=== PATIENT | male | born 1955 | race Caucasian/White ===

== ENCOUNTER 2018-02-22 18:37 | Emergency (ER) | payer OTHER ==
[~2018-02-22] VITALS: Ht 177.8 cm; Wt 95.3 kg
[2018-02-22 18:45] VITALS: BP 132/81
[2018-02-22] MEDS ORDERED: PROZAC10 MG ORAL (18:58)
[2018-02-22] MEDS ORDERED: XANAX0.25 MG ORAL (18:58)
[2018-02-22 19:07] LABS: BASOPHILS % (AUTO) 0.8 % (0.0-2.0); EOSINOPHILS % (AUTO) 1.3 % (0.0-3.0); HEMOGLOBIN 10.8 G/DL (14.2-18.0); LYMPHOCYTES % (AUTO) 18.8 % (20.0-45.0); MEAN CORPUSCULAR VOLUME 86 FL (80-99); MONOCYTES % (AUTO) 8.2 % (1.0-10.0); NEUTROPHILS % (AUTO) 70.9 % (45.0-75.0); PLATELET COUNT 233 K/UL (150-450); RED BLOOD COUNT 3.59 M/UL (4.70-6.10); RED CELL DISTRIBUTION WIDTH 10.1 % (11.6-14.8); WHITE BLOOD COUNT 14.9 K/UL (4.8-10.8)
[2018-02-22 19:15] LABS: ANION GAP 12 mmol/L (5-15); BLOOD UREA NITROGEN 27 mg/dL (7-18); CARBON DIOXIDE 21 MMOL/L (21-32); CHLORIDE 102 MMOL/L (98-107); CREATININE 0.9 MG/DL (0.55-1.30); POTASSIUM 3.6 MMOL/L (3.5-5.1); SODIUM 135 MMOL/L (136-145)
[2018-02-22 19:28] LABS: ALANINE AMINOTRANSFERASE 32 U/L (12-78); ALBUMIN 3.3 G/DL (3.4-5.0); ALKALINE PHOSPHATASE 72 U/L (46-116); ASPARTATE AMINO TRANSFERASE 24 U/L (15-37); BILIRUBIN,TOTAL 0.2 MG/DL (0.2-1.0); CKMB 1.8 NG/ML (0.0-3.6); CREATINE KINASE 103 U/L (26-308)
--- NOTE | 2018-02-22 19:43 | Emergency Room Report ---
History of Present Illness General Chief Complaint: Syncope Source: Patient, Medical Record Present Illness HPI 62-year-old male presents ED for evaluation. Patient had a syncopal event today. Occurred at work in the parking lot as she was going home. States he started to feel dizzy and before he realized he was on the ground. Per EMS there is a laceration near his right eye. Tetanus is up-to-date. Patient was orthostatic in the field. Given IV fluids. Patient states he did have a long stressful day at work today. States he did not drink a lot of water. Denies any pain. Denies any headache or dizziness. Denies chest pain or shortness of breath. No other aggravating relieving factors. Denies any other associated symptoms Allergies: Coded Allergies: No Known Allergies (Unverified , 02/22/18) Patient History Past Medical History: psych hx Past Surgical History: none Pertinent Family History: none Social History: Denies: smoking, alcohol use, drug use Immunizations: UTD Reviewed Nursing Documentation: PMH: Agreed; PSxH: Agreed Nursing Documentation-PMH Past Medical History: No History, Except For Hx Asthma: Yes History Of Psychiatric Problem: Yes - depression, anxiety Review of Systems All Other Systems: negative except mentioned in HPI Physical Exam Vital Signs Date Time Temp Pulse Resp B/P (MAP) Pulse Ox O2 Delivery O2 Flow Rate FiO2 02/22/18 18:41 97.7 96 14 136/84 98 Room Air Sp02 EP Interpretation: reviewed, normal General Appearance: no apparent distress, alert, GCS 15, non-toxic Head: normocephalic, other - 2cm vertical laceration lateral to R eyebrow, connecting with lateral canthus. Eyes: bilateral eye normal inspection, bilateral eye PERRL, bilateral eye EOMI ENT: hearing grossly normal, normal pharynx, no angioedema, normal voice Neck: normal inspection Respiratory: chest non-tender, lungs clear, normal breath sounds, speaking full sentences Cardiovascular #1: regular rate, rhythm, no edema Gastrointestinal: normal bowel sounds, non tender, soft, non-distended, no guarding, no rebound Rectal: deferred Genitourinary: no CVA tenderness Musculoskeletal: normal inspection Neurologic: alert, oriented x3, responsive, motor strength/tone normal, sensory intact, speech normal Psychiatric: normal inspection Skin: normal inspection Lymphatic: normal inspection Medical Decision Making Diagnostic Impression: Primary Impression: Syncope Qualified Codes: R55 - Syncope and collapse Additional Impression: Facial laceration Qualified Codes: S01.81XA - Laceration without foreign body of other part of head, initial encounter ER Course Hospital Course 62-year-old male presents ED s/p syncopal episode. +orthostatic. laceration Differential diagnoses include: arrythmia, dehydration, intracranial bleed, seizure Clinical course Patient placed on stretcher. on cardiac catheterization technologist. After initial history and physical I ordered labs, EKG, chest Xray, IVFs, CT Brain labs reviewed- no leukocytosis, Hb/Hct stable, electrolytes ok, troponins negative CT Brain - no bleed or midline shift, indeterminate age R lateral orbit nondisplaced fx Chest x-ray- no acute process EKG - NSR, no acute ischemic changes interpreted by me Discussed findings with patient. Extraocular movements intact. No change in visual acuity. Dr Way came to bedside to evaluate patient and repaired the laceration Per SF syncope rules patient is at low risk for adverse outcome. Safe for discharge close outpatient follow-up. Wound care instructions given. I. I feel this is a highly complex case requiring extensive working including EKG/Rhythm strip, Xray/CT/US, Blood/urine lab work, repeat exams while in ED, and administration of strong opiates/narcotics for pain control, admission to hospital or close patient follow up. Diagnosis - syncope, facial laceration Stable and discharged to home with Rx Keflex, Tylenol, Bacitracin. Followup with PMD/plastics. Return to ED if symptoms recur or worsen Labs Test 02/22/18 18:55 White Blood Count 14.9 K/UL (4.8-10.8) Red Blood Count 3.59 M/UL (4.70-6.10) Hemoglobin 10.8 G/DL (14.2-18.0) Hematocrit 31.0 % (42.0-52.0) Mean Corpuscular Volume 86 FL (80-99) Mean Corpuscular Hemoglobin 30.0 PG (27.0-31.0) Mean Corpuscular Hemoglobin Concent 34.7 G/DL (32.0-36.0) Red Cell Distribution Width 10.1 % (11.6-14.8) Platelet Count 233 K/UL (150-450) Mean Platelet Volume 8.2 FL (6.5-10.1) Neutrophils (%) (Auto) 70.9 % (45.0-75.0) Lymphocytes (%) (Auto) 18.8 % (20.0-45.0) Monocytes (%) (Auto) 8.2 % (1.0-10.0) Eosinophils (%) (Auto) 1.3 % (0.0-3.0) Basophils (%) (Auto) 0.8 % (0.0-2.0) Sodium Level 135 MMOL/L (136-145) Potassium Level 3.6 MMOL/L (3.5-5.1) Chloride Level 102 MMOL/L (98-107) Carbon Dioxide Level 21 MMOL/L (21-32) Anion Gap 12 mmol/L (5-15) Blood Urea Nitrogen 27 mg/dL (7-18) Creatinine 0.9 MG/DL (0.55-1.30) Estimat Glomerular Filtration Rate > 60 mL/min (>60) Glucose Level 157 MG/DL (74-106) Calcium Level 8.0 MG/DL (8.5-10.1) Total Bilirubin 0.2 MG/DL (0.2-1.0) Aspartate Amino Transf (AST/SGOT) 24 U/L (15-37) Alanine Aminotransferase (ALT/SGPT) 32 U/L (12-78) Alkaline Phosphatase 72 U/L (46-116) Total Creatine Kinase 103 U/L (26-308) Creatine Kinase MB 1.8 NG/ML (0.0-3.6) Creatine Kinase MB Relative Index 1.7 Troponin I 0.000 ng/mL (0.000-0.056) Pro-B-Type Natriuretic Peptide 36 pg/mL (0-125) Total Protein 6.6 G/DL (6.4-8.2) Albumin 3.3 G/DL (3.4-5.0) Globulin 3.3 g/dL Albumin/Globulin Ratio 1.0 (1.0-2.7) EKG Diagnostic Results Rate: normal Rhythm: NSR ST Segments: no acute changes ASA given to the pt in ED: No Rhythm Strip Diag. Results EP Interpretation: yes Rhythm: NSR, no PVC's, no ectopy Chest X-Ray Diagnostic Results Chest X-Ray Diagnostic Results : Chest X-Ray Ordered: Yes # of Views/Limited/Complete: 1 View Indication: Other - syncope EP Interpretation: Yes Interpretation: no consolidation, no effusion, no pneumothorax, no acute cardiopulmonary disease Impression: No acute disease Electronically Signed by: Electronically signed by Vaughn Garner MD CT/MRI/US Diagnostic Results CT/MRI/US Diagnostic Results : Imaging Test Ordered: CT head Impression no brainy injury. R nondisplaced orbit fx indeterminate age Last Vital Signs Date Time Temp Pulse Resp B/P (MAP) Pulse Ox O2 Delivery O2 Flow Rate FiO2 02/22/18 18:45 98.0 90 15 132/81 99 Room Air Status: improved Disposition: HOME, SELF-CARE Condition: Stable Scripts Acetaminophen* (TYLENOL EXTRA STRENGTH*) 500 Mg Tablet 500 MG ORAL Q8H PRN for Prn Headache/Temp > 101, #30 TAB 0 Refills Prov: Vaughn Garner MD 02/22/18 Bacitracin (Bacitracin) 28.4 Gm Oint...g. 1 APPLIC TOPIC THREE TIMES A DAY, #28.4 GM Prov: Vaughn Garner MD 02/22/18 Cephalexin* (KEFLEX*) 500 Mg Capsule 500 MG ORAL EVERY 6 HOURS for 7 Days, CAP Prov: Vaughn Garner MD 02/22/18 Referrals: [facility],REFERRING (PCP) Vaughn Garner MD Feb 22, 2018 19:43
[2018-02-22 20:01] LABS: APPEARANCE,URINE CLEAR; BILIRUBIN, URINE NEGATIVE (NEGATIVE); COLOR,URINE PALE YELLOW; GLUCOSE, URINE (UA) NEGATIVE (NEGATIVE); KETONES,URINE NEGATIVE (NEGATIVE); LEUKOCYTE ESTERASE ,URINE 1+ (NEGATIVE); NITRITE,URINE NEGATIVE (NEGATIVE); PH,URINE 6 (4.5-8.0); PROTEIN,URINE NEGATIVE (NEGATIVE); UROBILINOGEN,URINE NORMAL MG/DL (0.0-1.0)
[2018-02-22 20:41] VITALS: BP 147/74
[2018-02-22] MEDS ORDERED: BACITRACIN15 GM TOPIC (20:42)
[2018-02-22] MEDS ORDERED: CEPHALEXIN500 MG ORAL (20:42)
[2018-02-22] MEDS ORDERED: TYLENOL EXTRA500 MG ORAL (20:42)
[2018-02-22 20:47] VITALS: BP 147/74
[2018-02-22] MEDS ORDERED: Bacitracin Oint UD TOPIC ONE (21:07)
[2018-02-22] MEDS: Bacitracin Oint UD TOPIC ONE (21:10)
--- NOTE | 2018-02-22 23:15 | Operative Note - Dictated ---
DATE OF OPERATION: 02/22/2018 PREOPERATIVE DIAGNOSES: 1. Complex right lateral canthal facial laceration. 2. Right superior eyebrow complex facial laceration. POSTOPERATIVE DIAGNOSIS: 1. Complex right lateral canthal facial laceration. 2. Right superior eyebrow complex facial laceration. PROCEDURES: 1. Complex closure of right lateral canthal facial laceration measuring 2.6 cm. 2. Adjacent tissue transfer closure of right superior orbital laceration measuring 7 cm. SURGEON: Ashanti Way M.D. VALVE REPAIRER RECLAMATION: None. ANESTHESIA: Local. COMPLICATIONS: None. DISPOSITION: Stable to home. INDICATIONS FOR SURGERY: This is a 62-year-old male status post syncopal episode where he sustained lacerations to his face. DIAGNOSTIC DATA: CT scan of the head revealed nondisplaced orbital wall fracture and no evidence of any parenchymal brain bleed. For these lacerations, I felt that he would need a complex closure of the left lateral canthal laceration as well as adjacent tissue transfer closure of the right superior eyebrow laceration. He understood the risks and benefits of the procedure and agreed to proceed. DETAILS OF THE PROCEDURE: The patient's head and neck was prepped and draped in a sterile and usual fashion. We first began by injecting a total of 5 mL of lidocaine with epinephrine into the superior eyebrow laceration region as well as 3 cm to the lateral canthal region on the right side. After 5 minutes elapsed, we began by first performing a complex closure of the lateral canthal region by elevating the tissues to allow for a tension-free repair and once this was performed, we were able to bring together the skin edges using multiple 6-0 Prolene sutures. This allowed us to completely close the 2.6 cm laceration without any tension. We then turned our attention to the superior eyebrow laceration. This was much more irregular and complicated in the sense that there appeared to be some tissue that needed to be debrided at the margin of the inferior aspect of the wound as well as disrupted frontalis muscle in that area. We first began by debriding the inferior aspect of the laceration and then lifted the medial skin flap to allow for tension-free reapproximation and adjacent tissue transfer closure of the wound by using multiple 4-0 Vicryl sutures to reapproximate the deep layer including the frontalis muscle and once this was reapproximated, multiple interrupted 5-0 Prolene sutures were used to close the skin. This completed the adjacent tissue transfer closure of the right superior eyebrow laceration, which measured 7 cm in length and also completed the 2.6 cm laceration closure of the right lateral canthal region. The patient tolerated the procedure well. There is no complications. Ashanti Way M.D. DR: PAIGE JOB#: [id number] CC:
--- NOTE | 2018-02-22 23:15 | Consultation ---
DATE OF CONSULTATION: 02/22/2018 REASON FOR THE CONSULTATION: Complex facial laceration. HISTORY OF PRESENT ILLNESS: This is a 62-year-old male, admitted to the emergency room status post syncopal episode. He sustained a complex laceration over his superior right eyebrow as well as just lateral to his lateral canthus. The emergency room asked me to evaluate the patient for possible repair. PAST MEDICAL HISTORY: Refer to the ER note. PAST SURGICAL HISTORY: Refer to the ER note. MEDICATIONS: Include baby aspirin. ALLERGIES: None. PHYSICAL EXAMINATION: GENERAL: The patient is alert and oriented. HEART: Regular rate and rhythm. ABDOMEN: Soft, nontender, and nondistended. HEAD AND NECK: Reveals a complex laceration to the lateral canthus measuring 2.6 cm. There is also an irregular type of laceration with exposed frontalis muscle just superior to the right eyebrow measuring 7 cm. ASSESSMENT AND PLAN: This is a 62-year-old male with complex facial lacerations to the right eyebrow, superior eyebrow region, as well as lateral canthal region. He will require a complex closure of these injuries under local anesthesia. Ashanti Way M.D. DR: PAIGE JOB#: [id number] CC:
--- NOTE | 2018-02-23 09:15 | Diagnostic Imaging Report ---
Indication: Chest pain Technique: One view of the chest Comparison: none Findings: Lungs and pleural spaces are clear. The heart size is normal. Impression: Negative
--- NOTE | 2018-02-23 09:19 | Diagnostic Imaging Report ---
Indications: Pain, dizziness, syncope Technique: Spiral acquisitions obtained through the brain. Angled axial and coronal 5 x 5 mm slices were reconstructed. Total dose length product 1495.73 mGycm. CTDI vol(s) 70.38 mGy. Dose reduction achieved using automated exposure control Comparison: None. Findings: Incidentally noted there is a soft tissue defect in the right periorbital/supraorbital region, consistent with a laceration. No radiopaque foreign body demonstrated. There is a slight buckling of the lateral wall of the right orbit consistent with fracture deformity, acuity indeterminate. No significant abnormality of the orbital fat demonstrated. No acute intrarenal hemorrhage or edema. No mass effect nor midline shift. Normal cordova-white differentiation. Normal-sized ventricles and extra axial CSF spaces. Visualized orbits are unremarkable. There is minimal right maxillary sinus disease. The mastoids are clear. The visualized orbits are unremarkable Impression: Evidence of soft tissue laceration in the right periorbital/supraorbital region. Acuity indeterminate fracture of the right lateral orbital wall. Correlate with clinical findings Negative for acute intracranial bleed or mass effect Incidental finding minimal right maxillary sinus disease This agrees with the preliminary interpretation provided overnight by Dr. Nolasco The CT scanner at [facility] is accredited by the [employer] and the scans are performed using protocols designed to limit radiation exposure to as low as reasonably achievable to attain images of sufficient resolution adequate for diagnostic evaluation.
--- NOTE | 2018-03-06 14:25 | Cardiology Report ---
APPROVED REPORT EKG Measurement Heart [id number] Normal sinus rhythm Normal ECG
== END 2018-02-22 21:18 | disposition home or self-care (01) ==
LOC: EDBD 18:37 → EDSEX 18:37 → EMR 19:19
DX: R55 Syncope and collapse (principal); S01.111A Laceration without foreign body of right eyelid and periocular area, initial encounter; S01.81XA Laceration without foreign body of other part of head, initial encounter; S02.81XA Fracture of other specified skull and facial bones, right side, initial encounter for closed fracture; W19.XXXA Unspecified fall, initial encounter; Y92.481 Parking lot as the place of occurrence of the external cause; F41.8 Other specified anxiety disorders; J45.909 Unspecified asthma, uncomplicated
CPT/HCPCS: 36415; 70450; 71045; 80053; 81003; 82550; 82553; 83880; 84484; 85025; 93005; 96360; 99284